=== PATIENT | male | born 1950 | race Caucasian/White ===

== ENCOUNTER → 2019-04-10 | Outpatient (CLI) | payer MEDICARE ==
[~2019-04-10] MED LIST: HEALTHYLAX17 GM PO; NOHOMEMEDICATIONS
[2019-04-10 10:17] LABS: CREATININE 0.8 mg/dL (0.6-1.3)
== END ==
LOC: M.LAB 08:00 → M.CT 09:00
PROVIDERS: Surgery Vascular Surgery
DX: I72.8 Aneurysm of other specified arteries (principal); I70.213 Atherosclerosis of native arteries of extremities with intermittent claudication, bilateral legs; N28.1 Cyst of kidney, acquired

== ENCOUNTER → 2019-07-10 | Outpatient (CLI) | payer MEDICARE ==
--- NOTE | 2019-07-11 13:10 | CARDNUC ---
[place] [address] CARDIAC NUCLEAR IMAGING REPORT Name: CHRISTIANNAHOMY P Room: [facility]#: [id number] Admission: 07/10/19 Attend Phys: Ananth Patricio Discharge: Date of : 54 Date of Service: 07/11/19 1308 Report #: [id number] THIS REPORT FOR: cc: Fermin Snell MD, Dean L. MD Liston, Michael J. MD [facility] ~ APPROVED REPORT Imaging Protocol: Rest Tc-99m/Stress Tc-99m 1 day Study performed: 07/10/2019 07:30:00 Indication: Abnormal EKG, Lightheaded/dizzy. Patient Location: Out-Patient Stress Tech: Delia Beth Stress Nurse: Joyce Sellers RN NM Tech:ARACELY Sharp Ht: 5 ft 7 in Wt: 162 lbs BSA: 1.85 m2 BMI: 25.36 Medical History Medical History: ABN EKG, Carotid disease/Right Carotid Bruit, Lightheaded/Dizzy, HTN, HLD, Past smoker, Strong family Heart HX. Medications: ASA 81 Mg Q other day, Amlodipine, Atorvastatin, Ramipril. Allergies: No known drug allergies Cardiac Risk Factors: Age, FHX of CAD, HTN, Hyperlipidemia, Past Smoker, Carotid Disease. Previous Cardiac Procedures: None Pretest Chest Pain Characteristics: No chest pain Exercise History: Physically active Physical Disabilities: None Meds Held (24 hrs): None Resting Data Rest SPECT myocardial perfusion imaging was performed in supine position 30 minutes following the intravenous injection of 10.1 mCi of Tc-99m Sestamibi. Time of rest injection: 0750 Date: 07/10/2019 The images were gated to evaluate regional wall motion and calculate left ventricular ejection fraction. Administration Route: IV Administration Site: [place] [address] CARDIAC NUCLEAR IMAGING REPORT Name: NAHOMY GONZALES Room: [facility]#: [id number] Admission: 07/10/19 Attend Phys: Ananth Patricio Discharge: Date of : 54 Date of Service: 07/11/19 1308 Report #: [id number] Exercise Stress At peak stress, the patient was injected intravenously with 33.5mCi of Tc-99m Sestamibi. Time of stress injection: 934 Date: 07/10/2019 Administration Route: IV Administration Site: Left Hand Gated Stress SPECT was performed 30 minutes after stress injection. The images were gated to evaluate regional wall motion and calculate left ventricular ejection fraction. Prone imaging was performed. Stress Test Details Stress Test: Exercise stress testing was performed using a Cash protocol. HR Max Heart Rate (APMHR): 154 bpm Resting HR: 79 bpm Target HR (85% APMHR): 130 bpm Max HR Achieved: 140 bpm % of APMHR: 90 Recovery HR: 94 bpm HR response to stress: Normal HR response to stress BP Resting BP: 112/85 mmHg Max BP: 169/80 mmHg Recovery BP: 124/87 mmHg BP response to stress: Normal blood pressure response to stress. ECG Resting ECG: Sinus Rhythm Stress ECG: Sinus Tachycardia ST Change: None Arrhythmia: None Recovery ECG: Sinus Rhythm Recovery ST Change: None Recovery Arrhythmia: None Clinical Reason for Termination: Maximal effort, Completed protocol, Patient Request. Stress Symptoms: Dyspnea, Lightheaded. Exercise duration: 8 min 55 sec Exercise capacity: 10.16 METs Overall Exercise Capacity for Age: [place] [address] CARDIAC NUCLEAR IMAGING REPORT Name: NAHOMY GONZALES Room: [facility]#: [id number] Admission: 07/10/19 Attend Phys: Ananth Patricio Discharge: Date of : 54 Date of Service: 07/11/19 1308 Report #: [id number] No cardiac symptoms with standard Cash protocol exersize. Nurse Comments A 68 year old male presented for a Cash Protocol Nuclear Stress Test r/t ABN EKG and lightheaded/dizziness. Treadmill well tolerated to stage 3 and patient requested to end test. Recovery unremarkable. Patient escorted by staff to Nuclear Medicine for imaging. Patient was stable and stated he felt good at that time. Exercise capacity - Superior. Stress ECG Conclusion Baseline EKG shows no significant St Segment or T-wave abnormalities. There were no St segment or T-wave changes with exersize. There were no stress induced arrythmias. Study Quality Study: Good Artifact: Mild Diaphragmatic artifact Study Data At rest, the left ventricular ejection fraction was 61%.. Post stress, the left ventricular ejection was 61%.. TID = 0.79. Perfusion Images obtained in the supine position at rest and post stress show photopenia that resolves with post stress prone imaging consistent with diaphragmatic attenuation artifiact. Post stress prone imaging shows uniform uptake of the radioisotope with no defect to suggest infarct or ischemia. Wall Motion Normal left ventricular wall motion. Nuclear Conclusion ECG Findings: negative for ischemia Clinical Findings: negative for ischemia Nuclear Findings: negative for ischemia Exercise Capacity: normal Left Ventricular Function: normal Risk Study: low This is a low risk study. <Conclusion> Baseline EKG shows no significant St Segment [place] [address] CARDIAC NUCLEAR IMAGING REPORT Name: NAHOMY GONZALES Room: [facility]#: [id number] Admission: 07/10/19 Attend Phys: Ananth Patricio Discharge: Date of : 54 Date of Service: 07/11/19 1308 Report #: [id number] There were no St segment or T-wave changes with exersize. There were no stress induced arrythmias. <ELECTRONICALLY SIGNED> By: Yuri Kirkland MD, FAC 07/11/19 1308 1308 1308 Yuri Kirkland MD, FACC /INF
== END ==
LOC: M.NUC 07-05 14:00
DX: R94.31 Abnormal electrocardiogram [ECG] [EKG] (principal)

== ENCOUNTER → 2019-10-10 | Outpatient (CLI) | payer MEDICARE ==
[2019-10-10 08:51] LABS: CREATININE 1.1 mg/dL (0.6-1.3)
== END ==
LOC: M.LAB 08:00 → M.CT 09:00
PROVIDERS: ATTEND Surgery Vascular Surgery
DX: K76.0 Fatty (change of) liver, not elsewhere classified (principal); I72.8 Aneurysm of other specified arteries; N20.0 Calculus of kidney

== ENCOUNTER → 2019-10-29 | Outpatient (CLI) | payer MEDICARE | LOC: M.ULTRA 09:00 | PROVIDERS: ATTEND Internal Medicine | DX: E04.2 Nontoxic multinodular goiter (principal) ==

== ENCOUNTER → 2020-05-25 | Outpatient (CLI) | payer MEDICARE | LOC: M.ULTRA 07:20 | PROVIDERS: ATTEND Internal Medicine | DX: E04.2 Nontoxic multinodular goiter (principal) ==

== ENCOUNTER → 2021-03-19 | Outpatient (CLI) | payer MEDICARE | LOC: M.ULTRA 10:18 | PROVIDERS: ATTEND Internal Medicine | DX: E04.2 Nontoxic multinodular goiter (principal) ==

== ENCOUNTER → 2021-03-23 | Outpatient (CLI) | payer MEDICARE | LOC: M.LAB 09:26 | PROVIDERS: ATTEND Internal Medicine | DX: E04.2 Nontoxic multinodular goiter (principal) ==